=== PATIENT | female | born 1990 ===

== ENCOUNTER 2022-02-13 16:53 | Inpatient (IN) | payer OTHER ==
[~2022-02-13] VITALS: Ht 157.5 cm; Wt 70.7 kg
[2022-02-13] MEDS ORDERED: STUACAP PO (17:01)
[2022-02-13] MEDS ORDERED: HOME MED LIST COMPLETE! XX SCH (17:05)
[2022-02-13] MEDS ORDERED: METHYLERGONOVINE MALEATE 0.2 MG/ML VIAL (J2210) IM PRN (17:25)
[2022-02-13] MEDS ORDERED: LIDOCAINE 1% MDV 20ML VIAL INFIL PRN (17:25)
[2022-02-13] MEDS ORDERED: OXYTOCIN INJ 10 UNITS/ML VIAL (J2590) IM PRN (17:25)
[2022-02-13] MEDS ORDERED: OXYTOCIN DRIP 30 UNITS in IV 1 EA IV PRN ×4 (17:25)
[2022-02-13] MEDS ORDERED: TRANEXAMIC ACID INJection 1,000 MG in NS 100 ML IV PRN (17:25)
[2022-02-13] MEDS ORDERED: CARBOPROST TROMETHAMINE 250 MCG/ML AMP IM PRN (17:25)
[2022-02-13 17:43] LABS: HEMATOCRIT 39.5 % (36.0-47.0); MEAN CORPUSCULAR HEMOGLOBIN 27.7 pg (27.0-33.0); MEAN CORPUSCULAR HGB CONC 32.9 g/dl (32.0-36.5); PLATELET COUNT, AUTOMATED 270 10^3/uL (150-450); WHITE BLOOD COUNT 13.9 10^3/uL (4.0-10.0)
[2022-02-13] MEDS ORDERED: IBUPROFEN 600MG TAB PO PRN (18:50)
[2022-02-13] MEDS ORDERED: DOCUSATE SODIUM 100MG CAPSULE PO PRN (18:50)
[2022-02-13] MEDS ORDERED: METHYLERGONOVINE MALEATE 0.2 MG TAB PO PRN (18:50)
[2022-02-13] MEDS ORDERED: ACETAMINOPHEN TAB 650MG DOSE (2X325MG) PO PRN (18:50)
[2022-02-13] MEDS ORDERED: IBUPROFEN 800 MG TAB PO PRN (18:50)
[2022-02-13] MEDS ORDERED: DIBUCAINE 1% OINTMENT 30GM TOP PRN (18:50)
[2022-02-13] MEDS ORDERED: ACETAMINOPHEN 500 MG TAB PO PRN (18:50)
[2022-02-13 19:12] VITALS: BP 122/65
[2022-02-13 19:27] VITALS: BP 116/61
[2022-02-13 19:42] VITALS: BP 110/63
[2022-02-13 19:58] VITALS: BP 105/57
[2022-02-13 20:12] VITALS: BP 108/69
[2022-02-13 21:25] VITALS: BP 106/53
[2022-02-14 05:29] VITALS: BP 101/55
[2022-02-14 06:47] LABS: HEMATOCRIT 38.4 % (36.0-47.0); HEMOGLOBIN 12.6 g/dl (12.0-15.5); MEAN CORPUSCULAR HEMOGLOBIN 27.9 pg (27.0-33.0); MEAN CORPUSCULAR HGB CONC 32.8 g/dl (32.0-36.5); PLATELET COUNT, AUTOMATED 239 10^3/uL (150-450); RED BLOOD COUNT 4.52 10^6/uL (4.00-5.40); WHITE BLOOD COUNT 18.2 10^3/uL (4.0-10.0)
[2022-02-14] MEDS ORDERED: STUACAP PO (08:05)
[2022-02-14] MEDS ORDERED: ACET-683 PO (08:07)
[2022-02-14] MEDS ORDERED: PRENATAL VITAMINS CHEWABLE TABLET PO SCH (09:00)
[2022-02-14 18:00] VITALS: BP 99/54
[2022-02-14 19:48] VITALS: BP 117/56
== END 2022-02-14 19:58 | disposition home or self-care (01) | DRG 560 ==
LOC: M LDO 16:53 → M LDI 17:22 → M OBS 21:17
PROVIDERS: ADMIT Obstetrics & Gynecology Obstetrics; ATTEND Obstetrics & Gynecology Obstetrics
PROC: 10E0XZZ Delivery of Products of Conception, External Approach (ICD-10-PCS; principal; 2022-02-13)
DX: O80 Encounter for full-term uncomplicated delivery (principal); Z3A.40 40 weeks gestation of pregnancy; Z37.0 Single live birth

== ENCOUNTER 2023-09-11 21:25 | Inpatient (IN) | payer OTHER ==
[~2023-09-11] VITALS: Ht 157.5 cm; Wt 72.3 kg
[~2023-09-11 21:25] MED LIST: ACET-683 PO; STUACAP PO
[2023-09-11 21:42] VITALS: BP 132/63
[2023-09-11] MEDS ORDERED: CARBOPROST TROMETHAMINE 250 MCG/ML AMP IM PRN (21:55)
[2023-09-11] MEDS ORDERED: TRANEXAMIC ACID INJection 1,000 MG in NS 100 ML IV PRN (21:55)
[2023-09-11 22:15] VITALS: BP 114/68
[2023-09-11] MEDS: LR 1,000 ML IV SCH (22:17)
[2023-09-11] MEDS: OXYTOCIN DRIP 30 UNITS in IV 1 EA IV SCH (22:17)
[2023-09-11] MEDS ORDERED: PENICILLIN G POTASSIUM 5 MU IV 5 MU in D5W MINI-BAG PLUS 100 ML IV ONE (22:20)
[2023-09-11 22:39] LABS: HEMATOCRIT 41.2 % (36.0-47.0); HEMOGLOBIN 13.6 g/dl (12.0-15.5); MEAN CORPUSCULAR HEMOGLOBIN 28.5 pg (27.0-33.0); MEAN CORPUSCULAR VOLUME 86.4 fl (80.0-96.0); PLATELET COUNT, AUTOMATED 266 10^3/uL (150-450); RED BLOOD COUNT 4.77 10^6/uL (4.00-5.40); WHITE BLOOD COUNT 8.7 10^3/uL (4.0-10.0)
[2023-09-11] MEDS ORDERED: HOME MED LIST COMPLETE! XX SCH (23:05)
[2023-09-12] MEDS ORDERED: PEN G POT 3,000,000 UNIT/50 ML 3,000,000 UNIT in IV 1 EA IV SCH (02:30)
[2023-09-12 05:20] VITALS: BP 155/92
[2023-09-12] MEDS ORDERED: IBUPROFEN 800 MG TAB PO PRN (06:50)
[2023-09-12] MEDS ORDERED: IBUPROFEN 600MG TAB PO PRN (06:50)
[2023-09-12] MEDS ORDERED: METHYLERGONOVINE MALEATE 0.2 MG TAB PO PRN (06:50)
[2023-09-12] MEDS ORDERED: ACETAMINOPHEN 500 MG TAB PO PRN (06:50)
[2023-09-12] MEDS ORDERED: DIBUCAINE 1% OINTMENT 30GM TOP PRN (06:50)
[2023-09-12] MEDS: OXYTOCIN DRIP 30 UNITS in IV 1 EA IV SCH ×2 (06:50→08:14)
[2023-09-12] MEDS ORDERED: ACETAMINOPHEN TAB 650MG DOSE (2X325MG) PO PRN (06:50)
[2023-09-12 07:09] VITALS: BP 103/66
[2023-09-12 07:24] VITALS: BP 103/57
[2023-09-12] MEDS: METHYLERGONOVINE MALEATE 0.2MG/ML 1ML VIAL IM PRN (07:47)
[2023-09-12 08:04] VITALS: BP 104/55
[2023-09-12 18:00] VITALS: BP 115/56; O2SAT 98
[2023-09-12] MEDS: PRENATAL VITAMINS CHEWABLE TABLET PO SCH (19:00)
[2023-09-12] MEDS: DOCUSATE SODIUM 100MG CAPSULE PO PRN (19:00)
[2023-09-13 06:00] VITALS: BP 108/54
[2023-09-13 07:55] LABS: HEMATOCRIT 37.7 % (36.0-47.0); HEMOGLOBIN 12.5 g/dl (12.0-15.5); MEAN CORPUSCULAR HEMOGLOBIN 29.2 pg (27.0-33.0); MEAN CORPUSCULAR HGB CONC 33.2 g/dl (32.0-36.5); MEAN CORPUSCULAR VOLUME 88.1 fl (80.0-96.0); PLATELET COUNT, AUTOMATED 224 10^3/uL (150-450); RED BLOOD COUNT 4.28 10^6/uL (4.00-5.40); WHITE BLOOD COUNT 12.2 10^3/uL (4.0-10.0)
== END 2023-09-13 11:30 | disposition home or self-care (01) | DRG 560 ==
LOC: M LDI 21:25 → M OBS 09-12 09:05
PROVIDERS: ADMIT Obstetrics & Gynecology Obstetrics; ATTEND Obstetrics & Gynecology Obstetrics
PROC: 3E033VJ Introduction of Other Hormone into Peripheral Vein, Percutaneous Approach (ICD-10-PCS; 2023-09-11)
PROC: 10E0XZZ Delivery of Products of Conception, External Approach (ICD-10-PCS; principal; 2023-09-12)
PROC: 10907ZC Drainage of Amniotic Fluid, Therapeutic from Products of Conception, Via Natural or Artificial Opening (ICD-10-PCS; 2023-09-12)
DX: O48.0 Post-term pregnancy (principal); Z37.0 Single live birth; Z3A.41 41 weeks gestation of pregnancy; O99.824 Streptococcus B carrier state complicating childbirth; O69.81X0 Labor and delivery complicated by cord around neck, without compression, not applicable or unspecified